=== PATIENT | male | born 1980 | race Caucasian/White ===

== ENCOUNTER 2018-10-17 16:39 | Emergency (ER) | payer OTHER ==
[~2018-10-17] VITALS: Ht 167.6 cm; Wt 93.0 kg
[2018-10-17 16:54] VITALS: Ht 167.6 cm; Wt 93.0 kg
[2018-10-17 18:51] VITALS: BP 128/79
== END 2018-10-17 18:51 | disposition home or self-care (01) ==
LOC: ED 16:39
DX: S61.214A Laceration without foreign body of right ring finger without damage to nail, initial encounter (principal); W45.8XXA Other foreign body or object entering through skin, initial encounter; Y93.89 Activity, other specified; Y92.89 Other specified places as the place of occurrence of the external cause; Y99.8 Other external cause status
CPT/HCPCS: 90715; J2001

== ENCOUNTER 2018-10-24 09:52 | Emergency (ER) | payer OTHER ==
[~2018-10-24] VITALS: Ht 165.1 cm; Wt 92.1 kg
[2018-10-24 10:05] VITALS: Ht 165.1 cm; Wt 92.1 kg
[2018-10-24 10:25] VITALS: BP 121/68
== END 2018-10-24 10:25 | disposition home or self-care (01) ==
LOC: ED 09:52
DX: S61.214D Laceration without foreign body of right ring finger without damage to nail, subsequent encounter (principal); X58.XXXD Exposure to other specified factors, subsequent encounter

== ENCOUNTER 2019-01-17 13:19 | Emergency (ER) | payer OTHER ==
[~2019-01-17] VITALS: Ht 167.6 cm; Wt 93.4 kg
[2019-01-17 13:32] VITALS: Ht 167.6 cm; Wt 93.4 kg
[2019-01-17 15:29] VITALS: BP 128/82
== END 2019-01-17 15:29 | disposition home or self-care (01) ==
LOC: ED 13:19
DX: L60.0 Ingrowing nail (principal); R03.0 Elevated blood-pressure reading, without diagnosis of hypertension
CPT/HCPCS: J2001